=== PATIENT | female | born 1925 | race Caucasian/White ===

== ENCOUNTER → 2016-04-11 | Outpatient (REF) | payer MEDICARE ==
[2016-04-13 00:08] LABS: SJOGREN'S ANTI SS-B <0.2 AI (0.0-0.9)
[2016-04-16 00:06] LABS: AUREOBASIDIUM PULLULANS Negative (Negative); MICROPOLYSPORA FAENI AB Negative (Negative); PIGEON SERUM AB Negative (Negative); SJOGREN'S ANTI SS-A 4.2 AI (0.0-0.9); THERMOACTINOMYCES SACCHARI Negative (Negative); THERMOACTINOMYCES VULGARIS Negative (Negative)
== END ==
LOC: M LAB REF 13:24
PROVIDERS: ATTEND Internal Medicine Pulmonary Disease
DX: J84.10 Pulmonary fibrosis, unspecified (principal)